=== PATIENT | male | born 1980 | race African-American/Black ===

== ENCOUNTER 2022-06-16 17:35 | Emergency (ER) | payer MEDICAID ==
[~2022-06-16] VITALS: Ht 182.9 cm; Wt 100.0 kg
[2022-06-16 17:38] VITALS: BP 1/1
[2022-06-16] MEDS ORDERED: ALTEPLASE 100MG/VIAL IV NR (17:44)
[2022-06-16] MEDS ORDERED: ALTEPLASE IV NR ×4 (18:00)
== END 2022-06-17 01:26 ==
LOC: ER 17:35
DX: I46.9 Cardiac arrest, cause unspecified (principal); R42 Dizziness and giddiness
CPT/HCPCS: 31500; 82962; 99291; J2997